=== PATIENT | female | born 1980 | race Caucasian/White ===

== ENCOUNTER 2017-07-11 18:21 | Emergency (ER) | payer MEDICAID ==
[~2017-07-11] VITALS: Ht 170.2 cm; Wt 75.9 kg
[2017-07-11 18:25] VITALS: BP 116/70
[2017-07-11] MEDS ORDERED: ONDANSETRON 4 MG ODT PO ONE (18:50)
[2017-07-11] MEDS ORDERED: KETOROLAC 60 MG/2 ML VIAL IM ONE (18:50)
--- NOTE | 2017-07-11 19:00 | NUR ---
PATIENT PRESENTS TO ED WITH LOWER BACK PAIN, ABD PAIN, AND NAUSEA WITHOUT VOMITING X3 DAYS. PT STATES HOME REMIDIES NOT HELPING. PT STATES NORMAL BOWEL FUNCTION; SKIN IS PINK/WARM/DRY; AAOX4 WITH EVEN AND STEADY GAIT; LUNGS CLEAR BL; HR EVEN AND REGULAR; PT DENIES ANY FEVER, CP, SOB, OR COUGH AT THIS TIME; PATIENT STATES PAIN OF 6/10 AT THIS TIME; VSS; PATIENT POSITIONED FOR COMFORT; HOB ELEVATED; BEDRAILS UP X2; BED DOWN. ER MD MADE AWARE OF PT STATUS. CONTINUE TO MONITOR.
[2017-07-11 19:07] LABS: APPEARANCE,URINE CLEAR (CLEAR); BILIRUBIN,URINE NEGATIVE (NEGATIVE); BLOOD, URINE TRACE-L (NEGATIVE); COLOR,URINE YELLOW (YELLOW); LEUKOCYTE ESTERASE ,URINE TRACE (NEGATIVE); NITRITE, URINE NEGATIVE (NEGATIVE); UGLUCOSE NEGATIVE (NEGATIVE)
--- NOTE | 2017-07-11 19:23 | NUR ---
REPORT GIVEN TO BERTO SAENZ
[2017-07-11 19:49] VITALS: BP 116/70
[2017-07-11 21:12] LABS: RBC,URINE NONE SEEN /HPF (0-5); WBC,URINE 0-5 (RARE) /HPF (0-5)
== END 2017-07-11 19:49 | disposition home or self-care (01) ==
LOC: MED 18:21
DX: M54.5 Low back pain (principal); R30.0 Dysuria
CPT/HCPCS: 81001; 81025; 82948; 87086; 96372; 99284; J1885; S0119

== ENCOUNTER 2017-07-18 08:14 | Emergency (ER) | payer MEDICAID ==
[~2017-07-18] VITALS: Ht 165.1 cm; Wt 78.0 kg
[2017-07-18 08:21] VITALS: BP 129/84
--- NOTE | 2017-07-18 08:28 | NUR ---
PATIENT TO RM 7 WITH STEADY GAIT. GAVE REPORT TO RYAN THOMSON.
--- NOTE | 2017-07-18 08:30 | NUR ---
36/F BIB SELF with c/o 1 CM laceration to LEFT THUMB s/p cutting fruit with knife this am. Bleeding controlled. CAP REF <3 SEC.AAOX4 WITH EVEN AND STEADY GAIT; LUNGS CLEAR BL; HR EVEN AND REGULAR. PATIENT STATES PAIN OF 7/10 AT THIS TIME. PATIENT POSITIONED FOR COMFORT; HOB ELEVATED; BEDRAILS UP X2; BED DOWN. ER MD MADE AWARE OF PT STATUS.
--- NOTE | 2017-07-18 08:30 | NUR ---
Note undone in EDM - 07/18/17 at 0839 by [email or web address] 36/F BIB SELF with c/o 1 CM laceration to RIGHT THUMB s/p cutting fruit with knife this am. Bleeding controlled. CAP REF <3 SEC.AAOX4 WITH EVEN AND STEADY GAIT; LUNGS CLEAR BL; HR EVEN AND REGULAR. PATIENT STATES PAIN OF 7/10 AT THIS TIME. PATIENT POSITIONED FOR COMFORT; HOB ELEVATED; BEDRAILS UP X2; BED DOWN. ER MADE AWARE OF PT STATUS.
--- NOTE | 2017-07-18 08:46 | NUR ---
Patient being DR LE by physician at bedside.
[2017-07-18] MEDS ORDERED: HYDROcodone/APAP 5/325 MG 1 TAB TAB PO ONE (08:50)
[2017-07-18] MEDS ORDERED: LIDOCAINE 1% 500 MG/50 ML VIAL INJ ONE (08:50)
[2017-07-18] MEDS ORDERED: cefTRIAXone 1,000 MG in LIDOCAINE 1% ***ER ONLY *** 2.1 ML IM ONE (08:50)
[2017-07-18] MEDS ORDERED: NEOMYCIN/POLYMYXIN/BACITRACIN 0.9 GM/1 PKT TP ONE (08:50)
[2017-07-18] MEDS ORDERED: cefTRIAXone 1,000 MG VIAL ONE (08:58)
[2017-07-18] MEDS ORDERED: LIDOCAINE MPF 1% - **ER/OR** 5 ML ONE ×2 (09:02→09:45)
--- NOTE | 2017-07-18 09:52 | NUR ---
L THUMB LAC WOUND SUTURE DONE BY DR LE. PT TOLERATED PROCEDURE WELL.
[2017-07-18] MEDS ORDERED: LIDOCAINE MPF 1% - **ER/OR** 15 ML ONE (09:59)
[2017-07-18 10:30] VITALS: BP 113/77
--- NOTE | 2017-07-18 10:30 | NUR ---
Patient discharged with v/s stable. Written and verbal after care instructions given and explained. Patient alert, oriented and verbalized understanding of instructions. Ambulatory with steady gait. All questions addressed prior to discharge. ID band removed. Patient advised to follow up with PMD. Rx of KEFLEX & MOTRIN given. Patient educated on indication of medication including possible reaction and side effects. Opportunity to ask questions provided and answered.
== END 2017-07-18 10:30 | disposition home or self-care (01) ==
LOC: MED 08:14
DX: S61.210A Laceration without foreign body of right index finger without damage to nail, initial encounter (principal); Z88.8 Allergy status to other drugs, medicaments and biological substances; W26.0XXA Contact with knife, initial encounter; Y93.89 Activity, other specified; Y92.89 Other specified places as the place of occurrence of the external cause; Y99.8 Other external cause status
CPT/HCPCS: 12002; 90471; 90715; 96372; 99284; J0696; J2001

== ENCOUNTER 2017-07-20 08:12 | Emergency (ER) | payer MEDICAID ==
[~2017-07-20] VITALS: Ht 167.6 cm; Wt 77.2 kg
[2017-07-20 08:15] VITALS: BP 112/69
[2017-07-20 08:34] VITALS: BP 112/69
== END 2017-07-20 08:32 | disposition home or self-care (01) ==
LOC: MED 08:12
DX: S61.012D Laceration without foreign body of left thumb without damage to nail, subsequent encounter (principal); Z48.01 Encounter for change or removal of surgical wound dressing; Z88.8 Allergy status to other drugs, medicaments and biological substances; X58.XXXD Exposure to other specified factors, subsequent encounter
CPT/HCPCS: 99281

== ENCOUNTER 2017-07-25 17:40 | Emergency (ER) | payer MEDICAID ==
[~2017-07-25] VITALS: Ht 167.6 cm; Wt 76.7 kg
[2017-07-25 17:45] VITALS: BP 120/72
--- NOTE | 2017-07-25 17:50 | NUR ---
ASSUMED CARE OF PT AT THIS TIME. PT PRESENTS FOR FOLLOW-UP OF LEFT THUMB LACERATION THAT WAS REPAIRED HERE ON 07/18. REDNESS AND SWELLING NOTED. AAOX4 WITH EVEN AND STEADY GAIT; PATIENT STATES PAIN OF 9/10 AT THIS TIME; VSS; PATIENT POSITIONED FOR COMFORT; HOB ELEVATED; BEDRAILS UP X2; BED DOWN. ER MD MADE AWARE OF PT STATUS. WILL CONTINUE TO MONITOR.
[2017-07-25] MEDS ORDERED: cefTRIAXone 1,000 MG in LIDOCAINE MPF 1% - **ER/OR** 2.1 ML IM ONE (18:10)
[2017-07-25] MEDS ORDERED: IBUPROFEN 600 MG TAB PO ONE (18:10)
[2017-07-25] MEDS ORDERED: ACETAMINOPHEN 325 MG TAB PO ONE (18:10)
[2017-07-25 18:35] VITALS: BP 118/74
--- NOTE | 2017-07-25 18:35 | NUR ---
Patient discharged with v/s stable. Written and verbal after care instructions given and explained. Patient alert, oriented and verbalized understanding of instructions. Ambulatory with steady gait. All questions addressed prior to discharge. ID band removed. Patient advised to follow up with PMD. Rx of BACTRIM, KEFLEX, AND IBUPROFEN given. Patient educated on indication of medication including possible reaction and side effects. Opportunity to ask questions provided and answered.
== END 2017-07-25 18:35 | disposition home or self-care (01) ==
LOC: MED 17:40
DX: T81.4XXA Infection following a procedure, initial encounter (principal); L08.89 Other specified local infections of the skin and subcutaneous tissue; Z88.8 Allergy status to other drugs, medicaments and biological substances; Y92.89 Other specified places as the place of occurrence of the external cause
CPT/HCPCS: 81025; 96372; 99283; J0696; J2001

== ENCOUNTER 2017-07-27 13:35 | Emergency (ER) | payer MEDICAID ==
[~2017-07-27] VITALS: Ht 167.6 cm; Wt 76.2 kg
[2017-07-27 13:39] VITALS: BP 111/64
[2017-07-27 14:33] VITALS: BP 110/63
== END 2017-07-27 14:32 | disposition home or self-care (01) ==
LOC: MED 13:35
DX: S61.012D Laceration without foreign body of left thumb without damage to nail, subsequent encounter (principal); Z88.8 Allergy status to other drugs, medicaments and biological substances; X58.XXXD Exposure to other specified factors, subsequent encounter
CPT/HCPCS: 99283

== ENCOUNTER 2017-07-30 15:43 | Emergency (ER) | payer MEDICAID ==
[~2017-07-30] VITALS: Ht 167.6 cm; Wt 75.4 kg
[2017-07-30 15:48] VITALS: BP 101/61
--- NOTE | 2017-07-30 15:51 | NUR ---
PT AMBULATES TO BED 11, REPORT GIVEN TO BERTO LAROSE
--- NOTE | 2017-07-30 15:55 | NUR ---
36Y/F BIB SELF FOR RECHECK FOR LACERATION ON LT THUMB BASE WITH A KNIFE WHILE CUTTING TOMMY ON 07/18/2017. AAOX4 WITH EVEN AND STEADY GAIT; PATIENT STATES PAIN OF 2/10 AT THIS TIME; VSS; PATIENT POSITIONED FOR COMFORT; HOB ELEVATED; BEDRAILS UP X1; BED DOWN. ER MD MADE AWARE OF PT STATUS.
[2017-07-30 16:09] VITALS: BP 103/62
--- NOTE | 2017-07-30 16:09 | NUR ---
Patient discharged with v/s stable. Written and verbal after care instructions given and explained. Patient verbalized understanding. Ambulatory with steady gait. All questions addressed prior to discharge. Advised to follow up with PMD.
== END 2017-07-30 16:09 | disposition home or self-care (01) ==
LOC: MED 15:43
DX: S61.012D Laceration without foreign body of left thumb without damage to nail, subsequent encounter (principal); Z48.02 Encounter for removal of sutures; X58.XXXD Exposure to other specified factors, subsequent encounter; Z88.8 Allergy status to other drugs, medicaments and biological substances
CPT/HCPCS: 99283

== ENCOUNTER 2019-02-13 17:15 | Emergency (ER) | payer MEDICAID ==
[~2019-02-13] VITALS: Ht 170.2 cm; Wt 79.8 kg
[2019-02-13 17:32] VITALS: BP 128/68
[2019-02-13] MEDS ORDERED: ACETAMINOPHEN EXTRA STRENGTH 500 MG TAB PO ONE (17:40)
[2019-02-13] MEDS ORDERED: DEXAMETHASONE 10 MG/ML VIAL IM ONE (17:50)
--- NOTE | 2019-02-13 17:57 | NUR ---
38/F TO ED WITH C/O COUGH AND FEVER AT HOME X 1 WEEK. PT REPORTS TAKING TYLENOL AT HOME WITH NO RELIEF. LUNG SOUNDS CLEAR BILATERALLY. NO DISTRESS NOTED.
[2019-02-13 18:15] VITALS: BP 122/64
--- NOTE | 2019-02-13 18:15 | NUR ---
Patient discharged with v/s stable. Written and verbal after care instructions given and explained. Patient alert, oriented and verbalized understanding of instructions. Ambulatory with steady gait. All questions addressed prior to discharge. ID band removed. Patient advised to follow up with PMD. Rx of AZITHROMYCIN, TYLENOL, MOTRIN, PROMETHAZIN given. Patient educated on indication of medication including possible reaction and side effects. Opportunity to ask questions provided and answered.
== END 2019-02-13 18:15 | disposition home or self-care (01) ==
LOC: MED 17:15
DX: J02.9 Acute pharyngitis, unspecified (principal); Z88.8 Allergy status to other drugs, medicaments and biological substances
CPT/HCPCS: 96372; 99283; J1100

== ENCOUNTER 2023-01-05 02:12 | Emergency (ER) | payer MEDICAID ==
[~2023-01-05] VITALS: Ht 170.2 cm; Wt 78.0 kg
[2023-01-05 02:25] VITALS: BP 134/80; PULSE 65; RESP 17; TEMP 97.7; O2SAT 100
[2023-01-05] MEDS ORDERED: FAMOTIDINE 20 MG TAB PO ONE (03:30)
[2023-01-05] MEDS ORDERED: predniSONE 20 MG TAB PO ONE (03:30)
[2023-01-05] MEDS ORDERED: DIPH25TA53 PO (04:10)
[2023-01-05] MEDS ORDERED: PRED20TA5 PO (04:10)
[2023-01-05 04:52] VITALS: BP 134/80; PULSE 65; RESP 17; TEMP 97.7; O2SAT 100
== END 2023-01-05 04:52 | disposition home or self-care (01) ==
LOC: MED 02:12
DX: T78.49XA Other allergy, initial encounter (principal); Z79.899 Other long term (current) drug therapy; Z88.8 Allergy status to other drugs, medicaments and biological substances; X58.XXXA Exposure to other specified factors, initial encounter
CPT/HCPCS: 99284; J7512; Q0163

== ENCOUNTER 2023-01-25 01:25 | Emergency (ER) | payer OTHER, MEDICAID ==
[~2023-01-25] VITALS: Ht 162.6 cm; Wt 72.6 kg
[~2023-01-25 01:25] MED LIST: DIPH25TA53 PO; PRED20TA5 PO
[2023-01-25 01:37] VITALS: BP 111/72; PULSE 86; RESP 16; TEMP 97.7; O2SAT 100
[2023-01-25] MEDS ORDERED: MORPHINE SULFATE 4 MG/ML SYR IVP ONE (02:30)
[2023-01-25] MEDS ORDERED: NACL 0.9% 1,000 ML IV ONE ×2 (02:30→04:45)
[2023-01-25] MEDS ORDERED: ONDANSETRON 4 MG/2 ML VIAL IVP ONE (02:30)
[2023-01-25 03:21] LABS: BASOPHILS % (AUTO) 0.2 % (0.0-2.0); EOSINOPHILS % (AUTO) 0.4 % (0.0-4.0); HEMATOCRIT 40.5 % (36-48); HEMOGLOBIN 13.8 g/dL (12.0-16.0); LYMPHOCYTES # (AUTO) 2.2 K/uL (2.5-16.5); MEAN CORPUSCULAR HEMOGLOBIN 32 pg (27-31); MEAN CORPUSCULAR HGB CONC 34 g/dL (33-37); MEAN CORPUSCULAR VOLUME 92.9 fL (80-94); MONOCYTES # (AUTO) 0.6 K/uL (0.8-1.0); MONOCYTES % (AUTO) 5.3 % (1.7-9.3); NEUTROPHILS # (AUTO) 8.1 K/uL (1.8-7.7); NEUTROPHILS % (AUTO) 74.1 % (42.2-75.2); PLATELET COUNT (AUTO) 216 K/uL (140-450); RED BLOOD CELL COUNT(AUTO) 4.36 MIL/uL (4.20-5.40); RED CELL DISTRIBUTION WIDTH 13.7 % (11.6-13.7)
[2023-01-25 03:27] LABS: ALBUMIN 3.2 g/dL (3.4-5.0); BILIRUBIN,DIRECT 0.2 mg/dL (0.0-0.3); TOTAL BILIRUBIN 0.8 mg/dL (0.0-1.0); TOTAL PROTEIN, SERUM 6.7 g/dL (6.4-8.2)
[2023-01-25 03:31] LABS: ANION GAP 12.4 (8-16); CALCIUM 8.1 mg/dL (8.5-10.1); CARBON DIOXIDE 28.4 mmol/L (21-32); CREATININE 0.5 mg/dL (0.6-1.3); POTASSIUM 3.8 mmol/L (3.5-5.1)
[2023-01-25] MEDS ORDERED: PIPERACILLIN/TAZOBACTAM 3.375 GM in DEXTROSE 5% 50 ML IV ONE (04:45)
[2023-01-25] MEDS ORDERED: PIPERACILLIN/TAZOBACTAM 3.375 GM VIAL IV ONE (04:54)
[2023-01-25 05:15] LABS: APPEARANCE,URINE CLEAR (CLEAR); BILIRUBIN,URINE NEGATIVE (NEGATIVE); BLOOD, URINE NEGATIVE (NEGATIVE); COLOR,URINE YELLOW (YELLOW); LEUKOCYTE ESTERASE ,URINE NEGATIVE (NEGATIVE); NITRITE, URINE NEGATIVE (NEGATIVE); PH,URINE 6.5 (5.0-9.0); PROTEIN,URINE NEGATIVE (NEGATIVE); UGLUCOSE NEGATIVE (NEGATIVE); UROBILINOGEN,URINE 0.2 EU/dL (0.2 - 1)
[2023-01-25 05:27] LABS: LACTIC ACID 1.7 mmol/L (0.4-2.0)
[2023-01-25] MEDS ORDERED: KETOROLAC 30 MG/ML VIAL IVP ONE (05:50)
[2023-01-25] MEDS ORDERED: LOPE-289 PO (07:56)
[2023-01-25] MEDS ORDERED: IBUP-2213 PO (07:56)
[2023-01-25 08:02] VITALS: TEMP 98.3
[2023-01-25 08:20] VITALS: BP 101/52; PULSE 60; RESP 15; O2SAT 98
== END 2023-01-25 08:20 | disposition home or self-care (01) ==
LOC: MED 01:25
DX: K63.89 Other specified diseases of intestine (principal); R18.8 Other ascites; Z79.899 Other long term (current) drug therapy
CPT/HCPCS: 36415; 74177; 80048; 80076; 81003; 81025; 83605; 83690; 85025; 87040; 96361; 96365; 96375; 99285; J1885; J2270; J2405; J2543; J7030; Q9967

== ENCOUNTER 2023-04-16 01:43 | Emergency (ER) | payer MEDICAID, OTHER ==
[~2023-04-16] VITALS: Ht 165.1 cm; Wt 78.0 kg
[~2023-04-16 01:43] MED LIST changes: -DIPH25TA53 PO; +IBUP-2213 PO; +LOPE-289 PO; -PRED20TA5 PO
[2023-04-16 02:23] VITALS: BP 121/73; PULSE 56; RESP 18; TEMP 98.3; O2SAT 100
[2023-04-16 05:20] LABS: BASOPHILS % (AUTO) 0.2 % (0.0-2.0); EOSINOPHILS # (AUTO) 0.1 K/uL (0-0.4); EOSINOPHILS % (AUTO) 1.4 % (0.0-4.0); HEMATOCRIT 41.9 % (36-48); HEMOGLOBIN 14.1 g/dL (12.0-16.0); LYMPHOCYTES # (AUTO) 3.3 K/uL (2.5-16.5); LYMPHOCYTES % (AUTO) 36.3 % (20.5-51.1); MEAN CORPUSCULAR HEMOGLOBIN 32 pg (27-31); MEAN CORPUSCULAR HGB CONC 34 g/dL (33-37); MEAN CORPUSCULAR VOLUME 93.6 fL (80-94); MONOCYTES # (AUTO) 0.7 K/uL (0.8-1.0); MONOCYTES % (AUTO) 8.1 % (1.7-9.3); PLATELET COUNT (AUTO) 218 K/uL (140-450); RED BLOOD CELL COUNT(AUTO) 4.48 MIL/uL (4.20-5.40); WHITE BLOOD COUNT (AUTO) 9.2 K/uL (4.8-10.8)
[2023-04-16 05:51] LABS: ALANINE AMINOTRANSFERASE 25 U/L (12-78); ALBUMIN 3.6 g/dL (3.4-5.0); ALKALINE PHOSPHATASE 48 U/L (50-136); ANION GAP 6.7 (8-16); ASPARTATE AMINOTRANSFERASE 19 U/L (15-37); CALCIUM 8.4 mg/dL (8.5-10.1); CARBON DIOXIDE 31.3 mmol/L (21-32); CHLORIDE 106 mmol/L (98-107); CREATININE 0.4 mg/dL (0.6-1.3); GFR ARICAN-AMERICAN 226 mL/min (>90); GFR NON ARICAN-AMERICAN 187 mL/min (>90); GLUCOSE 100 mg/dL (74-106); MAGNESIUM 1.8 mg/dL (1.8-2.4); SODIUM SERUM 140 mmol/L (136-145); THYROID STIMULATING HORMONE 2.48 uIU/mL (0.34-3.74); TOTAL BILIRUBIN 0.6 mg/dL (0.0-1.0); TOTAL PROTEIN, SERUM 8.4 g/dL (6.4-8.2); UREA NITROGEN, BLOOD 8 mg/dL (7-18)
[2023-04-16 08:22] VITALS: O2SAT 98
[2023-04-16 08:45] VITALS: BP 122/68; PULSE 61; RESP 16; TEMP 97.1; O2SAT 98
[2023-04-16] MEDS ORDERED: MORPHINE SULFATE 2 MG/ML SYR IVP PRN (09:40)
[2023-04-16] MEDS ORDERED: LORazepam 2 MG/ML VIAL IVP PRN (09:40)
[2023-04-16] MEDS ORDERED: HYDROcodone/APAP 5/325 MG 1 TAB TAB PO PRN (09:40)
[2023-04-16] MEDS ORDERED: ONDANSETRON 4 MG/2 ML VIAL IVP PRN (09:40)
[2023-04-16] MEDS ORDERED: ACETAMINOPHEN 325 MG TAB PO PRN (09:40)
[2023-04-17] MEDS ORDERED: ENOXAPARIN 40 MG/0.4 ML SYR SUBQ SCH (09:00)
[2023-04-17] MEDS ORDERED: ASPIRIN 81 MG TAB.CHEW PO SCH (09:00)
== END 2023-04-16 11:52 | disposition left against medical advice (07) ==
LOC: MED 01:43 → MTU 09:41 → UNDOADMOB 09:41 → MTU 11:24 → MED 11:52
DX: R07.89 Other chest pain (principal); R53.83 Other fatigue; R20.0 Anesthesia of skin; Z88.8 Allergy status to other drugs, medicaments and biological substances; Z79.899 Other long term (current) drug therapy
CPT/HCPCS: 36415; 71045; 80053; 81025; 83735; 84443; 84484; 85025; 93005; 99285; Q0092